=== PATIENT | male | born 1935 | race Caucasian/White ===

== ENCOUNTER 2017-12-03 09:52 | Inpatient (IN) | payer MEDICARE, MEDICAID ==
[~2017-12-03] VITALS: Ht 185.4 cm; Wt 68.2 kg
[2017-12-03 10:47] LABS: BASOPHILS # (AUTO) 0.1 X10'3 (0-0.2); BASOPHILS % (AUTO) 0.9 % (0-1); EOSINOPHILS # (AUTO) 0.4 X10'3 (0-0.9); EOSINOPHILS % (AUTO) 2.2 % (0-6); HEMATOCRIT 29.3 % (42.0-52.0); HEMOGLOBIN 9.4 g/dl (14.0-17.9); LYMPHOCYTES # (AUTO) 1.1 X10'3 (1.1-4.8); LYMPHOCYTES % (AUTO) 6.5 % (21-51); MEAN CORPUSCULAR HEMOGLOBIN 22.7 PG (27.0-31.0); MEAN CORPUSCULAR HGB CONC 32.1 % (33.0-36.5); MEAN CORPUSCULAR VOLUME 70.8 FL (78-98); MEAN PLATELET VOLUME 7.3 FL (7.4-10.4); MONOCYTES # (AUTO) 0.6 X10'3 (0-0.9); MONOCYTES % (AUTO) 3.5 % (2-12); NEUTROPHILS # (AUTO) 14.8 X10'3 (1.8-7.7); NEUTROPHILS % (AUTO) 86.9 % (42-75); PLATELET COUNT 446 X10'3 (140-440); RED BLOOD COUNT 4.13 X10'6 (4.70-6.10); RED CELL DISTRIBUTION WIDTH 18.4 % (11.5-14.5)
[2017-12-03 10:55] LABS: INR 1.2 INR
[2017-12-03 11:03] LABS: ALANINE AMINOTRANSFERASE 11 U/L (12-78); ALBUMIN 1.9 G/DL (3.4-5.0); ALBUMIN/GLOBULIN RATIO 0.4 (1.1-1.5); ALKALINE PHOSPHATASE 98 IU/L (46-116); ANION GAP 8 (8-16); ASPARTATE AMINO TRANSFERASE 18 U/L (10-37); BILIRUBIN,TOTAL 0.5 MG/DL (0.1-1.0); BLOOD UREA NITROGEN 16 MG/DL (7-18); BUN/CREATININE RATIO 19.5 (5.4-32.0); CALCIUM 8.3 MG/DL (8.5-10.1); CHLORIDE 94 MMOL/L (99-107); CREATININE 0.82 MG/DL (0.60-1.10); GLUCOSE 112 MG/DL (70-104); SODIUM 132 MMOL/L (135-145); TOTAL CARBON DIOXIDE 30.1 MMOL/L (24-32); eGFR 90 ML/MIN
[2017-12-03] MEDS ORDERED: acetaminophen 325mg tablet PO PRN (12:35)
[2017-12-03] MEDS ORDERED: dextrose 50%-water 50ml dispensing syringe IV PRN (12:35)
[2017-12-03] MEDS ORDERED: LORazepam 2 mg/ml vial IV PRN (12:35)
[2017-12-03] MEDS ORDERED: ondansetron/PF 4mg/2ml inj IV PRN (12:35)
[2017-12-03] MEDS ORDERED: mag hydrox/Alum hydrox/simeth 30ml oral suspension PO PRN (12:35)
[2017-12-03] MEDS ORDERED: haloperidol lactate 5mg/ml inj IM PRN (12:35)
[2017-12-03] MEDS ORDERED: LORazepam 1 MG tablet PO PRN (12:35)
[2017-12-03] MEDS ORDERED: haloperidol 5mg tablet PO PRN (12:35)
[2017-12-03] MEDS ORDERED: magnesium hydroxide 30ml (MOM) UD suspension PO PRN (12:35)
[2017-12-03 13:12] LABS: CLARITY,URINE CLEAR (Clear); COLOR,URINE YELLOW (Yellow); GLUCOSE, URINE NEGATIVE (Neg); KETONES,URINE NEGATIVE (Neg); LEUKOCYTE ESTERASE ,URINE NEGATIVE (Neg); NITRITES, URINE NEGATIVE (Neg); OCCULT BLOOD,URINE NEGATIVE (Neg); PH,URINE 6.5 (4.8-8.0); PROTEIN,URINE NEGATIVE (Neg); UA COLLECTION TYPE FOLEY CATH; UROBILINOGEN,URINE >=8.0 E.U/dL (0.2-1.0)
[2017-12-03 13:24] LABS: HEMOGLOBIN A1C 5.6 % (4.5-6.2)
[2017-12-03] MEDS: normal saline 1000ml 1,000 ML IV SCH (13:39)
[2017-12-03] MEDS: morphine 2 MG/ML inj. syringe IV PRN ×2 (13:40→21:15)
[2017-12-03 14:15] VITALS: BP 126/70
[2017-12-03] MEDS ORDERED: CARB-87 PO (14:51)
[2017-12-03] MEDS ORDERED: PRAV20TA4 PO (14:51)
[2017-12-03] MEDS ORDERED: HCTZ25T PO (14:51)
[2017-12-03] MEDS ORDERED: OMEP40CA37 PO (14:51)
[2017-12-03] MEDS ORDERED: LOSA100T28 PO (14:51)
[2017-12-03] MEDS: HYDROcodone/acetaminophen 5mg/325mg tablet PO PRN ×2 (14:56→20:12)
[2017-12-03] MEDS ORDERED: potassium Cl 20 mEq SR tablet PO PRN ×3 (16:55→17:05)
[2017-12-03] MEDS ORDERED: potassium Cl 40MEQ/NS 500ml 500 ML IV PRN ×4 (16:55→17:05)
[2017-12-03 18:00] VITALS: BP 108/57
[2017-12-03] MEDS: LIDOcaine 1% 30ml vial 5 ML in potassium Cl 40MEQ/NS 500ml 500 ML IJ SCH (20:11)
[2017-12-03] MEDS ORDERED: pravastatin 40mg tablet PO SCH (21:00)
[2017-12-03 22:00] VITALS: BP 98/44
[2017-12-03] MEDS: carbidoba-levodopa 25-100mg tablet PO SCH (23:45)
[2017-12-04] VITALS (19 sets, daily range): BP systolic 104–139; BP diastolic 46–73
[2017-12-04] MEDS: LIDOcaine 1% 30ml vial 5 ML in potassium Cl 40MEQ/NS 500ml 500 ML IJ SCH (01:06)
[2017-12-04] MEDS: nicotine 14mg patch - 24hr TD SCH (07:09)
[2017-12-04] MEDS: thiamine 100mg tablet PO SCH (07:56)
[2017-12-04] MEDS: atorvastatin 10mg tablet PO SCH (07:56)
[2017-12-04] MEDS: carbidoba-levodopa 25-100mg tablet PO SCH ×2 (07:57→17:22)
[2017-12-04] MEDS: normal saline 1000ml 1,000 ML IV SCH ×2 (07:57→19:50)
[2017-12-04] MEDS ORDERED: non-formulary drug (Pravastatin Sodium 1 TAB) PO SCH (08:00)
[2017-12-04] MEDS: losartan 50mg tablet PO SCH (08:00)
[2017-12-04] MEDS: K and/or MAG REPLACEMENT MC SCH (08:00)
[2017-12-04 08:07] LABS: BASOPHILS % (AUTO) 0.2 % (0-1); EOSINOPHILS # (AUTO) 0.3 X10'3 (0-0.9); EOSINOPHILS % (AUTO) 2.1 % (0-6); HEMATOCRIT 24.3 % (42.0-52.0); HEMOGLOBIN 8.1 g/dl (14.0-17.9); LYMPHOCYTES # (AUTO) 0.8 X10'3 (1.1-4.8); LYMPHOCYTES % (AUTO) 5.8 % (21-51); MEAN CORPUSCULAR HGB CONC 33.2 % (33.0-36.5); MEAN CORPUSCULAR VOLUME 69.5 FL (78-98); MEAN PLATELET VOLUME 6.6 FL (7.4-10.4); MONOCYTES # (AUTO) 0.5 X10'3 (0-0.9); MONOCYTES % (AUTO) 3.8 % (2-12); NEUTROPHILS # (AUTO) 11.8 X10'3 (1.8-7.7); NEUTROPHILS % (AUTO) 88.1 % (42-75); PLATELET COUNT 406 X10'3 (140-440); RED CELL DISTRIBUTION WIDTH 17.9 % (11.5-14.5); WHITE BLOOD COUNT 13.4 X10'3 (4.5-11.0)
[2017-12-04 08:15] LABS: INR 1.2 INR; PARTIAL THROMBOPLASTIN TIME 31 SECONDS (22-32); PROTHROMBIN TIME 12.7 SECONDS (9.0-12.0)
[2017-12-04 08:23] LABS: ALBUMIN 1.5 G/DL (3.4-5.0); ALBUMIN/GLOBULIN RATIO 0.3 (1.1-1.5); ALKALINE PHOSPHATASE 72 IU/L (46-116); ANION GAP 4 (8-16); ASPARTATE AMINO TRANSFERASE 11 U/L (10-37); BILIRUBIN,TOTAL 0.4 MG/DL (0.1-1.0); BLOOD UREA NITROGEN 13 MG/DL (7-18); BUN/CREATININE RATIO 18.8 (5.4-32.0); CHLORIDE 104 MMOL/L (99-107); CHOL/HDL RATIO 2.6 (0.00-4.99); CHOLESTEROL 88 MG/DL (0-200); CREATININE 0.69 MG/DL (0.60-1.10); GLUCOSE 92 MG/DL (70-104); HDL CHOLESTEROL 34 MG/DL (35-60); LDL CHOLESTEROL 52 MG/DL (50-100); MAGNESIUM 1.7 MG/DL (1.5-2.4); PHOSPHORUS 2.9 MG/DL (2.3-4.5); POTASSIUM 4.7 MMOL/L (3.5-5.1); SODIUM 138 MMOL/L (135-145); TOTAL CARBON DIOXIDE 29.7 MMOL/L (24-32); TOTAL PROTEIN 5.8 G/DL (6.4-8.2); TRIGLYCERIDES 42 MG/DL (20-135); eGFR > 90 ML/MIN
[2017-12-04 08:41] LABS: ALANINE AMINOTRANSFERASE < 6 U/L (12-78)
[2017-12-04 09:05] LABS: PLATELET ESTIMATE NORMAL
[2017-12-04 09:06] LABS: ELLIPTOCYTES 1+
[2017-12-04 09:11] LABS: HYPOCHROMASIA 1+
[2017-12-04] MEDS ORDERED: ringers solution, lacted 1,000 ML IV SCH (10:42)
[2017-12-04] MEDS ORDERED: acetaminophen 1,000mg/100ml IV 100 ML IV PRN (10:45)
[2017-12-04] MEDS ORDERED: morphine 2 MG/ML inj. syringe IV PRN ×2 (10:45)
[2017-12-04] MEDS ORDERED: ondansetron/PF 4mg/2ml inj IV PRN (10:45)
[2017-12-04] MEDS ORDERED: meperidine/PF 50mg/ml syringe IV PRN ×3 (10:45)
[2017-12-04] MEDS ORDERED: proCHLORperazine 10 MG/2 ml inj IV PRN (10:45)
[2017-12-04] MEDS ORDERED: BUPIVAcaine 0.5% inj/PF 0 ML ONE (11:36)
[2017-12-04] MEDS ORDERED: ceFAZolin 1000mg inj ONE (11:36)
[2017-12-04] MEDS ORDERED: BUPIVAcaine/dex-water/PF 7.5 mg/ml 2ml ampul ONE (12:45)
[2017-12-04] MEDS ORDERED: fentaNYL/PF 50MCG/1 ML 2ML syringe ONE (13:27)
[2017-12-04] MEDS ORDERED: midazolam 2 mg/2 ml injection ONE (13:27)
[2017-12-04] MEDS ORDERED: propofol inj 20 ML IV ONE ×2 (13:49)
[2017-12-04] MEDS ORDERED: LIDOcaine 1% (10mg/ml) 2ml vial ONE (13:50)
[2017-12-04] MEDS ORDERED: cefazolin 1gm/NS 100mL 100 ML IV ONE ×2 (14:00→18:35)
[2017-12-04] MEDS: metoprolol tartrate 12.5mg (1/2 tablet) PO SCH (19:45)
[2017-12-04] MEDS: lactobacillus rhamnosus 10,000 MMU CELLS/CAPSULE PO SCH (19:46)
[2017-12-05] VITALS (14 sets, daily range): BP systolic 102–138; BP diastolic 52–75
[2017-12-05] MEDS: carbidoba-levodopa 25-100mg tablet PO SCH ×4 (00:33→23:48)
[2017-12-05] MEDS: HYDROcodone/acetaminophen 5mg/325mg tablet PO PRN ×3 (01:08→13:27)
[2017-12-05 06:16] LABS: BASOPHILS % (AUTO) 0.2 % (0-1); EOSINOPHILS # (AUTO) 0.3 X10'3 (0-0.9); EOSINOPHILS % (AUTO) 2.1 % (0-6); HEMATOCRIT 22.5 % (42.0-52.0); HEMOGLOBIN 7.4 g/dl (14.0-17.9); LYMPHOCYTES % (AUTO) 7.9 % (21-51); MEAN CORPUSCULAR HEMOGLOBIN 22.8 PG (27.0-31.0); MEAN CORPUSCULAR HGB CONC 32.8 % (33.0-36.5); MEAN CORPUSCULAR VOLUME 69.5 FL (78-98); MEAN PLATELET VOLUME 6.5 FL (7.4-10.4); MONOCYTES # (AUTO) 0.4 X10'3 (0-0.9); MONOCYTES % (AUTO) 3.5 % (2-12); NEUTROPHILS # (AUTO) 11.1 X10'3 (1.8-7.7); NEUTROPHILS % (AUTO) 86.3 % (42-75); PLATELET COUNT 362 X10'3 (140-440); RED BLOOD COUNT 3.23 X10'6 (4.70-6.10); RED CELL DISTRIBUTION WIDTH 18.3 % (11.5-14.5); WHITE BLOOD COUNT 12.8 X10'3 (4.5-11.0)
[2017-12-05 06:31] LABS: INR 1.2 INR; PARTIAL THROMBOPLASTIN TIME 32 SECONDS (22-32); PROTHROMBIN TIME 12.7 SECONDS (9.0-12.0)
[2017-12-05 06:55] LABS: ALANINE AMINOTRANSFERASE 9 U/L (12-78); ALBUMIN 1.4 G/DL (3.4-5.0); ALBUMIN/GLOBULIN RATIO 0.4 (1.1-1.5); ALKALINE PHOSPHATASE 68 IU/L (46-116); ANION GAP 8 (8-16); ASPARTATE AMINO TRANSFERASE 13 U/L (10-37); BILIRUBIN,TOTAL 0.5 MG/DL (0.1-1.0); BLOOD UREA NITROGEN 13 MG/DL (7-18); CALCIUM 7.6 MG/DL (8.5-10.1); CHLORIDE 102 MMOL/L (99-107); CREATININE 0.81 MG/DL (0.60-1.10); GLUCOSE 98 MG/DL (70-104); MAGNESIUM 1.5 MG/DL (1.5-2.4); PHOSPHORUS 2.9 MG/DL (2.3-4.5); POTASSIUM 3.4 MMOL/L (3.5-5.1); SODIUM 137 MMOL/L (135-145); TOTAL CARBON DIOXIDE 26.8 MMOL/L (24-32); TOTAL PROTEIN 5.4 G/DL (6.4-8.2); eGFR > 90 ML/MIN
[2017-12-05 07:26] LABS: ANISOCYTOSIS 2+; ELLIPTOCYTES 1+; MICROCYTOSIS 2+; PLATELET ESTIMATE NORMAL
[2017-12-05] MEDS: losartan 50mg tablet PO SCH (08:00)
[2017-12-05] MEDS: K and/or MAG REPLACEMENT MC SCH (08:00)
[2017-12-05] MEDS: nicotine 14mg patch - 24hr TD SCH (08:00)
[2017-12-05] MEDS: metoprolol tartrate 12.5mg (1/2 tablet) PO SCH ×2 (08:00→19:59)
[2017-12-05] MEDS: potassium Cl 20 mEq SR tablet PO PRN ×2 (08:24→17:14)
[2017-12-05] MEDS: thiamine 100mg tablet PO SCH (08:25)
[2017-12-05] MEDS: atorvastatin 10mg tablet PO SCH (08:25)
[2017-12-05] MEDS: lactobacillus rhamnosus 10,000 MMU CELLS/CAPSULE PO SCH ×2 (08:25→19:59)
[2017-12-05] MEDS: aspirin 325mg tablet PO SCH (08:25)
[2017-12-05] MEDS: normal saline 1000ml 1,000 ML IV SCH (12:40)
[2017-12-05] MEDS: Protein Shake (high protein) 240ml (8oz) cup PO SCH (18:00)
[2017-12-06] MEDS: normal saline 1000ml 1,000 ML IV SCH (02:12)
[2017-12-06 05:00] VITALS: BP 123/66
[2017-12-06 06:22] LABS: BASOPHILS % (AUTO) 0.1 % (0-1); EOSINOPHILS # (AUTO) 0.2 X10'3 (0-0.9); EOSINOPHILS % (AUTO) 1.5 % (0-6); HEMOGLOBIN 9.4 g/dl (14.0-17.9); LYMPHOCYTES # (AUTO) 1.2 X10'3 (1.1-4.8); LYMPHOCYTES % (AUTO) 8.7 % (21-51); MEAN CORPUSCULAR HGB CONC 32.5 % (33.0-36.5); MEAN CORPUSCULAR VOLUME 73.8 FL (78-98); MEAN PLATELET VOLUME 6.8 FL (7.4-10.4); MONOCYTES # (AUTO) 0.5 X10'3 (0-0.9); MONOCYTES % (AUTO) 3.6 % (2-12); NEUTROPHILS # (AUTO) 11.5 X10'3 (1.8-7.7); NEUTROPHILS % (AUTO) 86.1 % (42-75); PLATELET COUNT 349 X10'3 (140-440); RED BLOOD COUNT 3.93 X10'6 (4.70-6.10); WHITE BLOOD COUNT 13.3 X10'3 (4.5-11.0)
[2017-12-06 06:28] LABS: INR 1.2 INR; PARTIAL THROMBOPLASTIN TIME 32 SECONDS (22-32); PROTHROMBIN TIME 12.4 SECONDS (9.0-12.0)
[2017-12-06 06:34] LABS: ALBUMIN 1.4 G/DL (3.4-5.0); ALBUMIN/GLOBULIN RATIO 0.3 (1.1-1.5); ALKALINE PHOSPHATASE 78 IU/L (46-116); ANION GAP 5 (8-16); ASPARTATE AMINO TRANSFERASE 11 U/L (10-37); BILIRUBIN,TOTAL 0.7 MG/DL (0.1-1.0); BLOOD UREA NITROGEN 15 MG/DL (7-18); BUN/CREATININE RATIO 21.1 (5.4-32.0); CALCIUM 7.8 MG/DL (8.5-10.1); CHLORIDE 104 MMOL/L (99-107); CREATININE 0.71 MG/DL (0.60-1.10); GLUCOSE 100 MG/DL (70-104); MAGNESIUM 1.4 MG/DL (1.5-2.4); PHOSPHORUS 2.5 MG/DL (2.3-4.5); POTASSIUM 4.2 MMOL/L (3.5-5.1); SODIUM 136 MMOL/L (135-145); TOTAL CARBON DIOXIDE 26.9 MMOL/L (24-32); TOTAL PROTEIN 5.6 G/DL (6.4-8.2); eGFR > 90 ML/MIN
[2017-12-06 06:44] LABS: ALANINE AMINOTRANSFERASE < 6 U/L (12-78)
[2017-12-06 07:55] VITALS: BP 130/71
[2017-12-06] MEDS: nicotine 14mg patch - 24hr TD SCH (07:58)
[2017-12-06] MEDS: K and/or MAG REPLACEMENT MC SCH (07:58)
[2017-12-06] MEDS: carbidoba-levodopa 25-100mg tablet PO SCH (08:11)
[2017-12-06] MEDS: aspirin 325mg tablet PO SCH (08:12)
[2017-12-06] MEDS: losartan 50mg tablet PO SCH (08:12)
[2017-12-06] MEDS: thiamine 100mg tablet PO SCH (08:13)
[2017-12-06] MEDS: lactobacillus rhamnosus 10,000 MMU CELLS/CAPSULE PO SCH (08:14)
[2017-12-06] MEDS: metoprolol tartrate 12.5mg (1/2 tablet) PO SCH (08:14)
[2017-12-06] MEDS: atorvastatin 10mg tablet PO SCH (08:14)
[2017-12-06] MEDS: Protein Shake (high protein) 240ml (8oz) cup PO SCH ×2 (08:19→13:43)
[2017-12-06 10:48] VITALS: BP 124/61
[2017-12-06 13:03] VITALS: BP 129/67
== END 2017-12-06 14:00 | DRG 480 ==
LOC: ER 09:53 → ED HOLD 12:34 → EDBEDREQ 13:19 → ORTHO 4S 14:18
PROVIDERS: ADMIT Family Medicine; ATTEND Internal Medicine Nephrology
PROC: BQ11ZZZ Fluoroscopy of Left Hip (ICD-10-PCS; 2017-12-04)
PROC: 0QS734Z Reposition Left Upper Femur with Internal Fixation Device, Percutaneous Approach (ICD-10-PCS; principal; 2017-12-04 12:45)
PROC: 30233N1 Transfusion of Nonautologous Red Blood Cells into Peripheral Vein, Percutaneous Approach (ICD-10-PCS; 2017-12-05)
DX: S72.012A Unspecified intracapsular fracture of left femur, initial encounter for closed fracture (principal); E43 Unspecified severe protein-calorie malnutrition; E87.5 Hyperkalemia; D64.9 Anemia, unspecified; G20 Parkinson's disease; I48.91 Unspecified atrial fibrillation; E87.1 Hypo-osmolality and hyponatremia; Z68.1 Body mass index [BMI] 19.9 or less, adult; E86.0 Dehydration; Z96.653 Presence of artificial knee joint, bilateral; F17.220 Nicotine dependence, chewing tobacco, uncomplicated; R00.1 Bradycardia, unspecified; Z66 Do not resuscitate; D72.829 Elevated white blood cell count, unspecified; W10.8XXA Fall (on) (from) other stairs and steps, initial encounter; E78.5 Hyperlipidemia, unspecified; F02.80 Dementia in other diseases classified elsewhere, unspecified severity, without behavioral disturbance, psychotic disturbance, mood disturbance, and anxiety; E87.6 Hypokalemia; I10 Essential (primary) hypertension; K21.9 Gastro-esophageal reflux disease without esophagitis; Z79.899 Other long term (current) drug therapy; Z85.46 Personal history of malignant neoplasm of prostate; Z85.820 Personal history of malignant melanoma of skin; Y93.89 Activity, other specified; Y92.89 Other specified places as the place of occurrence of the external cause; Y99.8 Other external cause status
CPT/HCPCS: 36415; 71045; 73502; 73560; 76001; 80053; 80061; 81003; 83036; 83735; 84100; 85025; 85610; 85730; 86885; 86900; 86901; 86920; 87070; 87502; 87503; 93005; 97116; 97162; 97530; 99285; A4315; A4353; A4620; A6212; A6257; A6258; J0690; J2250; J2270; J2405; J2704; J3010; J3370; J3480; J3490; J7030; J7120; P9016

== ENCOUNTER 2018-05-01 14:38 | Inpatient (IN) | payer MEDICARE, MEDICAID ==
[~2018-05-01] VITALS: Ht 182.9 cm; Wt 60.0 kg
[2018-05-01] VITALS (10 sets, daily range): BP systolic 91–114; BP diastolic 47–68
[~2018-05-01 14:38] MED LIST: CARB-87 PO; HCTZ25T PO; LOSA100T28 PO; OMEP40CA37 PO; PRAV20TA4 PO
[2018-05-01 15:25] LABS: BASOPHILS % (AUTO) 0 % (0-1); EOSINOPHILS # (AUTO) 0.4 X10'3 (0-0.9); EOSINOPHILS % (AUTO) 1.8 % (0-6); LYMPHOCYTES # (AUTO) 1.1 X10'3 (1.1-4.8); LYMPHOCYTES % (AUTO) 4.4 % (21-51); MEAN CORPUSCULAR HEMOGLOBIN 20.5 PG (27.0-31.0); MEAN CORPUSCULAR HGB CONC 30.8 % (33.0-36.5); MEAN CORPUSCULAR VOLUME 66.5 FL (78-98); MEAN PLATELET VOLUME 7.3 FL (7.4-10.4); MONOCYTES # (AUTO) 0.5 X10'3 (0-0.9); MONOCYTES % (AUTO) 1.9 % (2-12); NEUTROPHILS # (AUTO) 22.1 X10'3 (1.8-7.7); NEUTROPHILS % (AUTO) 91.9 % (42-75); PLATELET COUNT 267 X10'3 (140-440); RED BLOOD COUNT 2.74 X10'6 (4.70-6.10); RED CELL DISTRIBUTION WIDTH 21.5 % (11.5-14.5)
[2018-05-01 15:34] LABS: HEMATOCRIT 18.2 % (42.0-52.0); HEMOGLOBIN 5.6 g/dl (14.0-17.9); INR 1.5 INR; PARTIAL THROMBOPLASTIN TIME 39 SECONDS (22-32); PROTHROMBIN TIME 15.7 SECONDS (9.0-12.0)
[2018-05-01 15:38] LABS: ALANINE AMINOTRANSFERASE 14 U/L (12-78); ALBUMIN 0.7 G/DL (3.4-5.0); ALBUMIN/GLOBULIN RATIO 0.2 (1.1-1.5); ALKALINE PHOSPHATASE 276 IU/L (46-116); ANION GAP 7 (8-16); ASPARTATE AMINO TRANSFERASE 24 U/L (10-37); BLOOD UREA NITROGEN 21 MG/DL (7-18); BUN/CREATININE RATIO 26.6 (5.4-32.0); CHLORIDE 107 MMOL/L (99-107); CREATININE 0.79 MG/DL (0.60-1.10); GLUCOSE 84 MG/DL (70-104); SODIUM 141 MMOL/L (135-145); TOTAL CARBON DIOXIDE 27.3 MMOL/L (24-32); TOTAL PROTEIN 4.9 G/DL (6.4-8.2); eGFR > 90 ML/MIN
[2018-05-01 15:40] LABS: POTASSIUM 2.9 MMOL/L (3.5-5.1)
[2018-05-01] MEDS ORDERED: normal saline 1000ML IV soln IV ONE (15:40)
[2018-05-01] MEDS ORDERED: piperacillin/tazo 3.375gm/50ml 50 ML IV ONE (15:40)
[2018-05-01 15:46] LABS: ANISOCYTOSIS 3+; ELLIPTOCYTES 1+; MICROCYTOSIS 2+; PLATELET ESTIMATE NORMAL; TOTAL CELLS COUNTED 100
[2018-05-01 15:47] LABS: TEAR DROP CELLS FEW
[2018-05-01 15:48] LABS: SCHISTOCYTES FEW
[2018-05-01] MEDS ORDERED: iohexol 300mg/ml 100ml inj. ONE (16:05)
[2018-05-01 17:50] LABS: CLARITY,URINE CLEAR (Clear); COLOR,URINE YELLOW (Yellow); GLUCOSE, URINE NEGATIVE (Neg); KETONES,URINE TRACE mg/dl (Neg); LEUKOCYTE ESTERASE ,URINE NEGATIVE (Neg); NITRITES, URINE NEGATIVE (Neg); OCCULT BLOOD,URINE NEGATIVE (Neg); PROTEIN,URINE NEGATIVE (Neg)
[2018-05-01 17:54] LABS: UA COLLECTION TYPE FOLEY CATH
[2018-05-01] MEDS ORDERED: ASPI-1264 PO (19:11)
[2018-05-01] MEDS ORDERED: morphine 4 MG/ML inj SYRINge IV PRN ×2 (19:15)
[2018-05-01] MEDS ORDERED: acetaminophen 325mg tablet PO PRN (19:15)
[2018-05-01] MEDS ORDERED: ondansetron/PF 4mg/2ml inj IV PRN (19:15)
[2018-05-01] MEDS ORDERED: magnesium hydroxide 30ml (MOM) UD suspension PO PRN (19:15)
[2018-05-01] MEDS ORDERED: mag hydrox/Alum hydrox/simeth 30ml oral suspension PO PRN (19:15)
[2018-05-01] MEDS ORDERED: CALC-159 (19:16)
[2018-05-01] MEDS ORDERED: CALC500T63 (19:16)
[2018-05-01] MEDS ORDERED: IRON-12 (19:18)
[2018-05-01] MEDS ORDERED: THIA100T70 PO (19:18)
[2018-05-01] MEDS: normal saline 1000ml 1,000 ML IV SCH (19:56)
[2018-05-01] MEDS ORDERED: potassium Cl 20 mEq SR tablet PO PRN (20:40)
[2018-05-01] MEDS ORDERED: potassium Cl 40MEQ/NS 500ml 500 ML IV PRN (20:40)
[2018-05-01] MEDS: K and/or MAG REPLACEMENT MC SCH (20:40)
[2018-05-01 20:50] LABS: OCCULT BLOOD STOOL NEGATIVE (Neg)
[2018-05-01] MEDS: potassium Cl 40MEQ/NS 500ml 500 ML IV PRN (22:20)
[2018-05-02] VITALS: BP 101/52
[2018-05-02] MEDS: potassium Cl 40MEQ/NS 500ml 500 ML IV PRN (02:19)
[2018-05-02 05:22] LABS: BASOPHILS % (AUTO) 0 % (0-1); EOSINOPHILS # (AUTO) 0.6 X10'3 (0-0.9); EOSINOPHILS % (AUTO) 1.9 % (0-6); HEMATOCRIT 29.1 % (42.0-52.0); LYMPHOCYTES # (AUTO) 1.4 X10'3 (1.1-4.8); LYMPHOCYTES % (AUTO) 4.6 % (21-51); MEAN CORPUSCULAR HEMOGLOBIN 22.8 PG (27.0-31.0); MEAN CORPUSCULAR VOLUME 73.3 FL (78-98); MEAN PLATELET VOLUME 8.2 FL (7.4-10.4); MONOCYTES # (AUTO) 0.3 X10'3 (0-0.9); MONOCYTES % (AUTO) 1.1 % (2-12); NEUTROPHILS # (AUTO) 28.7 X10'3 (1.8-7.7); NEUTROPHILS % (AUTO) 92.4 % (42-75); PLATELET COUNT 247 X10'3 (140-440); RED BLOOD COUNT 3.97 X10'6 (4.70-6.10)
[2018-05-02] MEDS: normal saline 1000ml 1,000 ML IV SCH ×2 (05:23→15:34)
[2018-05-02 05:58] LABS: ALBUMIN 0.8 G/DL (3.4-5.0); ANION GAP 9 (8-16); BLOOD UREA NITROGEN 22 MG/DL (7-18); BUN/CREATININE RATIO 28.9 (5.4-32.0); CALCIUM 7.2 MG/DL (8.5-10.1); CHLORIDE 111 MMOL/L (99-107); CREATININE 0.76 MG/DL (0.60-1.10); GLUCOSE 72 MG/DL (70-104); POTASSIUM 3.8 MMOL/L (3.5-5.1); SODIUM 142 MMOL/L (135-145); TOTAL CARBON DIOXIDE 21.6 MMOL/L (24-32); eGFR > 90 ML/MIN
[2018-05-02 06:35] LABS: ANISOCYTOSIS 3+; PLATELET ESTIMATE NORMAL; TOTAL CELLS COUNTED 100
[2018-05-02 06:36] LABS: HYPOCHROMASIA 1+; MICROCYTOSIS 2+; TEAR DROP CELLS FEW
[2018-05-02 06:37] LABS: ACANTHOCYTES 2+; ELLIPTOCYTES 1+
[2018-05-02 07:00] VITALS: BP 97/50
[2018-05-02] MEDS: K and/or MAG REPLACEMENT MC SCH (08:00)
[2018-05-02] MEDS: piperacillin/tazo 3.375gm/50ml 50 ML IV SCH ×3 (09:03→20:56)
[2018-05-02 12:17] VITALS: BP 93/52
[2018-05-02 20:00] VITALS: BP 106/63
[2018-05-02] MEDS: lactobacillus rhamnosus 10,000 MMU CELLS/CAPSULE PO SCH (20:52)
[2018-05-03] VITALS: BP 99/81
[2018-05-03] MEDS: normal saline 1000ml 1,000 ML IV SCH ×3 (01:42→17:02)
[2018-05-03] MEDS: piperacillin/tazo 3.375gm/50ml 50 ML IV SCH ×2 (01:44→08:13)
[2018-05-03 07:54] VITALS: BP 106/63
[2018-05-03] MEDS: thiamine 100mg tablet PO SCH (08:12)
[2018-05-03] MEDS: aspirin 325mg tablet PO SCH (08:12)
[2018-05-03] MEDS: lactobacillus rhamnosus 10,000 MMU CELLS/CAPSULE PO SCH ×2 (08:12→19:53)
[2018-05-03] MEDS: pantoprazole 40mg Tablet.DR PO SCH (08:12)
[2018-05-03] MEDS: IRON,CARBONYL (45 MG ELEMENTAL IRON) SR.TABLET PO SCH ×2 (08:13→19:53)
[2018-05-03 08:22] LABS: BASOPHILS % (AUTO) 0.1 % (0-1); EOSINOPHILS # (AUTO) 0.4 X10'3 (0-0.9); HEMATOCRIT 27.9 % (42.0-52.0); HEMOGLOBIN 8.7 g/dl (14.0-17.9); LYMPHOCYTES # (AUTO) 1.1 X10'3 (1.1-4.8); LYMPHOCYTES % (AUTO) 4.8 % (21-51); MEAN CORPUSCULAR HEMOGLOBIN 22.8 PG (27.0-31.0); MEAN CORPUSCULAR HGB CONC 31.2 % (33.0-36.5); MEAN PLATELET VOLUME 8.2 FL (7.4-10.4); MONOCYTES # (AUTO) 0.2 X10'3 (0-0.9); MONOCYTES % (AUTO) 1.1 % (2-12); NEUTROPHILS # (AUTO) 20.6 X10'3 (1.8-7.7); PLATELET COUNT 216 X10'3 (140-440); RED BLOOD COUNT 3.82 X10'6 (4.70-6.10); RED CELL DISTRIBUTION WIDTH 24.6 % (11.5-14.5); WHITE BLOOD COUNT 22.4 X10'3 (4.5-11.0)
[2018-05-03 08:34] LABS: ALBUMIN 0.7 G/DL (3.4-5.0); ANION GAP 8 (8-16); BLOOD UREA NITROGEN 23 MG/DL (7-18); BUN/CREATININE RATIO 27.4 (5.4-32.0); CALCIUM 7.2 MG/DL (8.5-10.1); CHLORIDE 112 MMOL/L (99-107); CREATININE 0.84 MG/DL (0.60-1.10); GLUCOSE 101 MG/DL (70-104); POTASSIUM 3.3 MMOL/L (3.5-5.1); SODIUM 142 MMOL/L (135-145); TOTAL CARBON DIOXIDE 21.7 MMOL/L (24-32); eGFR 87 ML/MIN
[2018-05-03] MEDS: K and/or MAG REPLACEMENT MC SCH (08:46)
[2018-05-03 09:05] LABS: ANISOCYTOSIS 3+; HYPOCHROMASIA 1+; MICROCYTOSIS 1+; PLATELET ESTIMATE NORMAL; POLYCHROMASIA 1+
[2018-05-03 09:06] LABS: ACANTHOCYTES 1+; BURR CELLS 1+; ELLIPTOCYTES 1+
[2018-05-03 09:07] LABS: SCHISTOCYTES FEW; TEAR DROP CELLS FEW
[2018-05-03 11:15] VITALS: BP 104/51
[2018-05-03 13:51] LABS: FERRITIN 445 NG/ML (26-388)
[2018-05-03 14:12] LABS: % IRON SATURATION 57 % (11-46); IRON 16 UG/DL (53-167); TOTAL IRON BINDING CAPACITY 28 UG/DL (259-388)
[2018-05-03 18:30] VITALS: BP 101/60
[2018-05-04] VITALS: BP 114/66
[2018-05-04] MEDS: normal saline 1000ml 1,000 ML IV SCH ×2 (03:00→14:13)
[2018-05-04 05:15] LABS: ALBUMIN 0.7 G/DL (3.4-5.0); ANION GAP 8 (8-16); BLOOD UREA NITROGEN 18 MG/DL (7-18); BUN/CREATININE RATIO 25.7 (5.4-32.0); CALCIUM 7.1 MG/DL (8.5-10.1); CHLORIDE 113 MMOL/L (99-107); GLUCOSE 84 MG/DL (70-104); POTASSIUM 3.7 MMOL/L (3.5-5.1); SODIUM 143 MMOL/L (135-145); TOTAL CARBON DIOXIDE 21.9 MMOL/L (24-32); eGFR > 90 ML/MIN
[2018-05-04 05:42] LABS: BASOPHILS % (AUTO) 0 % (0-1); EOSINOPHILS # (AUTO) 0.3 X10'3 (0-0.9); EOSINOPHILS % (AUTO) 1.3 % (0-6); HEMATOCRIT 30.1 % (42.0-52.0); HEMOGLOBIN 9.4 g/dl (14.0-17.9); LYMPHOCYTES # (AUTO) 1.4 X10'3 (1.1-4.8); LYMPHOCYTES % (AUTO) 6.1 % (21-51); MEAN CORPUSCULAR HEMOGLOBIN 22.5 PG (27.0-31.0); MEAN CORPUSCULAR HGB CONC 31.4 % (33.0-36.5); MEAN CORPUSCULAR VOLUME 71.8 FL (78-98); MEAN PLATELET VOLUME 8.6 FL (7.4-10.4); MONOCYTES # (AUTO) 0.5 X10'3 (0-0.9); MONOCYTES % (AUTO) 2.1 % (2-12); NEUTROPHILS # (AUTO) 20.2 X10'3 (1.8-7.7); NEUTROPHILS % (AUTO) 90.5 % (42-75); PLATELET COUNT 188 X10'3 (140-440); RED BLOOD COUNT 4.19 X10'6 (4.70-6.10); RED CELL DISTRIBUTION WIDTH 24.9 % (11.5-14.5); WHITE BLOOD COUNT 22.3 X10'3 (4.5-11.0)
[2018-05-04 07:15] LABS: PLATELET ESTIMATE NORMAL
[2018-05-04 07:17] LABS: ACANTHOCYTES FEW; ANISOCYTOSIS 3+; MICROCYTOSIS 2+; POIKILOCYTOSIS FEW; POLYCHROMASIA FEW
[2018-05-04 08:00] VITALS: BP 109/64
[2018-05-04] MEDS: K and/or MAG REPLACEMENT MC SCH (08:00)
[2018-05-04] MEDS: lactobacillus rhamnosus 10,000 MMU CELLS/CAPSULE PO SCH (08:52)
[2018-05-04] MEDS: pantoprazole 40mg Tablet.DR PO SCH (08:53)
[2018-05-04] MEDS: thiamine 100mg tablet PO SCH (08:53)
[2018-05-04] MEDS: IRON,CARBONYL (45 MG ELEMENTAL IRON) SR.TABLET PO SCH (08:53)
[2018-05-04] MEDS: aspirin 325mg tablet PO SCH (08:53)
[2018-05-04 12:00] VITALS: BP 99/54
== END 2018-05-04 16:39 | DRG 871 ==
LOC: ER 14:38 → ED HOLD 19:11 → SUR 3N 21:05
PROVIDERS: ADMIT Internal Medicine; ATTEND Internal Medicine
PROC: 30233N1 Transfusion of Nonautologous Red Blood Cells into Peripheral Vein, Percutaneous Approach (ICD-10-PCS; principal; 2018-05-01)
DX: A41.9 Sepsis, unspecified organism (principal); J69.0 Pneumonitis due to inhalation of food and vomit; G93.40 Encephalopathy, unspecified; E43 Unspecified severe protein-calorie malnutrition; K56.609 Unspecified intestinal obstruction, unspecified as to partial versus complete obstruction; J90 Pleural effusion, not elsewhere classified; J98.11 Atelectasis; G20 Parkinson's disease; D64.9 Anemia, unspecified; E87.6 Hypokalemia; K40.90 Unilateral inguinal hernia, without obstruction or gangrene, not specified as recurrent; E86.0 Dehydration; Z66 Do not resuscitate; Z79.82 Long term (current) use of aspirin; Z79.899 Other long term (current) drug therapy
CPT/HCPCS: 36415; 71045; 74177; 80048; 80053; 81003; 82272; 82728; 83540; 83550; 83605; 84145; 85025; 85610; 85730; 86885; 86900; 86901; 86920; 87040; 87070; 92616; 93005; 96365; 96366; 97161; 97530; 99291; A6212; A6213; A6250; J2270; J2543; J3480; J7030; P9016; Q9967

== ENCOUNTER 2018-05-18 02:42 | Emergency (ER) | payer MEDICARE, MEDICAID ==
[~2018-05-18] VITALS: Ht 180.3 cm; Wt 71.0 kg
[~2018-05-18 02:42] MED LIST changes: +ASPI-1264 PO; +CALC-159; +CALC500T63; -HCTZ25T PO; +IRON-12; -LOSA100T28 PO; -PRAV20TA4 PO; +THIA100T70 PO
[2018-05-18] MEDS ORDERED: normal saline 1000ML IV soln IVB ONE (03:00)
[2018-05-18] MEDS ORDERED: levoFLOXACIN-Levaquin 500mg/D5 100 ML IV ONE (03:50)
[2018-05-18 03:51] LABS: BASOPHILS # (AUTO) 0.1 X10'3 (0-0.2); BASOPHILS % (AUTO) 0.3 % (0-1); EOSINOPHILS % (AUTO) 0 % (0-6); HEMATOCRIT 24.9 % (42.0-52.0); HEMOGLOBIN 7.7 g/dl (14.0-17.9); LYMPHOCYTES # (AUTO) 0.8 X10'3 (1.1-4.8); LYMPHOCYTES % (AUTO) 3.6 % (21-51); MEAN CORPUSCULAR HEMOGLOBIN 23.4 PG (27.0-31.0); MEAN CORPUSCULAR HGB CONC 31.1 % (33.0-36.5); MEAN CORPUSCULAR VOLUME 75.3 FL (78-98); MEAN PLATELET VOLUME 8.6 FL (7.4-10.4); MONOCYTES # (AUTO) 0.1 X10'3 (0-0.9); MONOCYTES % (AUTO) 0.7 % (2-12); NEUTROPHILS # (AUTO) 21.3 X10'3 (1.8-7.7); NEUTROPHILS % (AUTO) 95.4 % (42-75); PLATELET COUNT 216 X10'3 (140-440); RED CELL DISTRIBUTION WIDTH 28.6 % (11.5-14.5); WHITE BLOOD COUNT 22.3 X10'3 (4.5-11.0)
[2018-05-18] MEDS: morphine 4 MG/ML inj SYRINge IV ONE ×2 (04:03→04:26)
[2018-05-18 04:04] LABS: INR 1.4 INR; PARTIAL THROMBOPLASTIN TIME 34 SECONDS (22-32)
[2018-05-18 04:08] LABS: ALANINE AMINOTRANSFERASE 8 U/L (12-78); ALBUMIN 0.8 G/DL (3.4-5.0); ALBUMIN/GLOBULIN RATIO 0.2 (1.1-1.5); ALKALINE PHOSPHATASE 91 IU/L (46-116); ANION GAP 8 (8-16); ASPARTATE AMINO TRANSFERASE 19 U/L (10-37); BILIRUBIN,TOTAL 0.4 MG/DL (0.1-1.0); BLOOD UREA NITROGEN 22 MG/DL (7-18); BUN/CREATININE RATIO 21.6 (5.4-32.0); CALCIUM 7.3 MG/DL (8.5-10.1); CHLORIDE 112 MMOL/L (99-107); CREATININE 1.02 MG/DL (0.60-1.10); GLUCOSE 116 MG/DL (70-104); MAGNESIUM 1.7 MG/DL (1.5-2.4); POTASSIUM 3.3 MMOL/L (3.5-5.1); SODIUM 145 MMOL/L (135-145); TOTAL CARBON DIOXIDE 24.9 MMOL/L (24-32); eGFR 70 ML/MIN
[2018-05-18 04:40] LABS: ANISOCYTOSIS 3+; PLATELET ESTIMATE NORMAL; TOTAL CELLS COUNTED 100
[2018-05-18 04:41] LABS: HYPOCHROMASIA 1+; MICROCYTOSIS 1+
[2018-05-18 04:43] LABS: ACANTHOCYTES FEW; ELLIPTOCYTES 1+; POIKILOCYTOSIS FEW; POLYCHROMASIA FEW
[2018-05-18 06:05] VITALS: BP 44/22
== END 2018-05-18 09:15 | disposition expired ==
LOC: ER 02:42
DX: J18.9 Pneumonia, unspecified organism (principal); A41.9 Sepsis, unspecified organism; R64 Cachexia; G20 Parkinson's disease; R41.82 Altered mental status, unspecified; Z88.5 Allergy status to narcotic agent; Z79.82 Long term (current) use of aspirin; Z79.899 Other long term (current) drug therapy
CPT/HCPCS: 36415; 71045; 80053; 83605; 83735; 85025; 85610; 85730; 87040; 87186; 93005; 96365; 96375; 99285; J1956; J2270; J7030